=== PATIENT | female | born 1965 | race Native Hawaiian/Other Pacific Islander ===

== ENCOUNTER 2017-04-30 18:40 | Emergency (ER) | payer OTHER ==
[~2017-04-30] VITALS: Ht 172.7 cm; Wt 109.8 kg
== END 2017-04-30 22:00 | disposition home or self-care (01) ==
LOC: ED 18:40
DX: S70.02XA Contusion of left hip, initial encounter (principal); W01.0XXA Fall on same level from slipping, tripping and stumbling without subsequent striking against object, initial encounter; Y93.89 Activity, other specified; Y92.238 Other place in hospital as the place of occurrence of the external cause; Y99.8 Other external cause status
CPT/HCPCS: 99282

== ENCOUNTER 2018-05-15 10:30 | Outpatient (CLI) | payer OTHER | END 2018-05-15 22:01 | disposition home or self-care (01) | LOC: RAD 10:30 | DX: M25.511 Pain in right shoulder (principal); M25.562 Pain in left knee; M25.561 Pain in right knee ==

== ENCOUNTER 2019-01-16 13:54 | Outpatient (CLI) | payer OTHER ==
[2019-01-16 14:17] LABS: POTASSIUM 3.9 mmol/L (3.6-5.2)
[2019-01-16 15:02] LABS: PLATELET COUNT 282 K/uL (152-353)
== END 2019-01-16 21:09 | disposition home or self-care (01) ==
LOC: LABW 13:54
PROVIDERS: Nurse Practitioner Family
DX: K64.0 First degree hemorrhoids (principal); R10.9 Unspecified abdominal pain
CPT/HCPCS: 36415; 80053; 81000; 82150; 82272; 82784; 83516; 83690; 85027; 86677

== ENCOUNTER 2019-01-18 07:52 | Outpatient (CLI) | payer OTHER | END 2019-01-18 19:10 | disposition home or self-care (01) | LOC: CT 07:52 | DX: R10.9 Unspecified abdominal pain (principal) | CPT/HCPCS: Q9963 ==

== ENCOUNTER 2019-05-02 10:50 | Day surgery (SDC) | payer OTHER ==
[~2019-05-02] VITALS: Ht 30.5 cm; Wt 0.5 kg
[2019-05-02 11:25] LABS: PLATELET COUNT 301 K/uL (152-353)
[2019-05-02 11:35] LABS: POTASSIUM 3.7 mmol/L (3.6-5.2)
== END 2019-05-02 16:08 | disposition home or self-care (01) ==
LOC: OR 10:50
PROVIDERS: Student in an Organized Health Care Education/Training Program
PROC: 0DJD8ZZ Inspection of Lower Intestinal Tract, Via Natural or Artificial Opening Endoscopic (ICD-10-PCS; principal; 2019-05-02)
PROC: 0DB68ZZ Excision of Stomach, Via Natural or Artificial Opening Endoscopic (ICD-10-PCS; 2019-05-02)
DX: K29.50 Unspecified chronic gastritis without bleeding (principal); K64.8 Other hemorrhoids; Z86.010 Personal history of colon polyps; K59.00 Constipation, unspecified; R10.84 Generalized abdominal pain; K92.0 Hematemesis
CPT/HCPCS: 80053; 85027; J0132; J2001; J2250; J2704; J3490

== ENCOUNTER 2019-07-23 11:38 | Outpatient (CLI) | payer OTHER | END 2019-07-23 22:03 | disposition home or self-care (01) | LOC: RAD 11:38 | DX: K59.00 Constipation, unspecified (principal) ==

== ENCOUNTER 2019-09-04 12:35 | Outpatient (CLI) | payer OTHER | END 2019-09-04 22:30 | disposition home or self-care (01) | LOC: RAD 12:35 | DX: K59.09 Other constipation (principal) ==

== ENCOUNTER 2019-09-17 08:13 | Outpatient (CLI) | payer OTHER | END 2019-09-17 20:55 | disposition home or self-care (01) | LOC: NM 08:13 | DX: K31.84 Gastroparesis (principal) | CPT/HCPCS: A9541 ==

== ENCOUNTER 2019-09-17 10:01 | Emergency (ER) | payer OTHER ==
[~2019-09-17] VITALS: Ht 172.7 cm; Wt 123.4 kg
[2019-09-17 10:10] VITALS: BP 156/86; TEMP 97.7
== END 2019-09-17 10:44 | disposition home or self-care (01) ==
LOC: ED 10:01
DX: B07.0 Plantar wart (principal)
CPT/HCPCS: 99281

== ENCOUNTER 2019-09-26 16:08 | Outpatient (CLI) | payer OTHER | END 2019-09-26 21:45 | disposition home or self-care (01) | LOC: LABW 16:08 | DX: R10.9 Unspecified abdominal pain (principal); K59.00 Constipation, unspecified | CPT/HCPCS: 36415; 83516; 86255; 86671 ==

== ENCOUNTER 2021-02-24 07:47 | Outpatient (CLI) | payer OTHER | END 2021-02-24 21:56 | disposition home or self-care (01) | LOC: CT 07:47 | PROVIDERS: ATTEND Nurse Practitioner | DX: M79.604 Pain in right leg (principal); M79.605 Pain in left leg; R60.0 Localized edema | CPT/HCPCS: 36415; 82565; 84520 ==

== ENCOUNTER 2021-06-18 14:18 | Emergency (ER) | payer OTHER ==
[~2021-06-18] VITALS: Ht 172.7 cm; Wt 123.4 kg
[2021-06-18 14:39] VITALS: TEMP 102.2
[2021-06-18 15:52] LABS: PLATELET COUNT 215 K/uL (152-353)
[2021-06-18 16:05] LABS: PARTIAL THROMBOPLASTIN TIME 24.8 SECONDS (24.5-33.6); POTASSIUM 3.2 mmol/L (3.6-5.2); SODIUM 137 mmol/L (136-145)
[2021-06-18 20:50] VITALS: BP 157/66
== END 2021-06-18 20:50 | disposition home or self-care (01) ==
LOC: ED 14:18
PROVIDERS: Emergency Medicine
DX: U07.1 COVID-19 (principal); J12.82 Pneumonia due to coronavirus disease 2019; R79.89 Other specified abnormal findings of blood chemistry; S00.83XA Contusion of other part of head, initial encounter; W22.8XXA Striking against or struck by other objects, initial encounter; Y92.89 Other specified places as the place of occurrence of the external cause
CPT/HCPCS: 36415; 80053; 83605; 83880; 84484; 85027; 85379; 85610; 85730; 87040; 93005; 96372; 99284; J1100; Q9963

== ENCOUNTER 2021-06-19 10:48 | Outpatient (CLI) | payer OTHER ==
[~2021-06-19] VITALS: Ht 172.7 cm; Wt 140.2 kg
== END 2021-06-19 19:32 | disposition home or self-care (01) ==
LOC: INF 10:48
PROVIDERS: ATTEND Internal Medicine
DX: Z23 Encounter for immunization (principal); U07.1 COVID-19
CPT/HCPCS: 96365; M0244

== ENCOUNTER 2021-08-12 13:10 | Outpatient (CLI) | payer OTHER | END 2021-08-12 19:19 | disposition home or self-care (01) | LOC: RAD 13:10 | PROVIDERS: ATTEND Registered Nurse | DX: R05.9 Cough, unspecified (principal) ==

== ENCOUNTER 2022-03-17 10:55 | Outpatient (CLI) | payer OTHER | END 2022-03-17 19:13 | disposition home or self-care (01) | LOC: MAMMO 10:55 | PROVIDERS: ATTEND Nurse Practitioner | DX: Z12.31 Encounter for screening mammogram for malignant neoplasm of breast (principal) ==

== ENCOUNTER 2022-10-27 15:08 | Emergency (ER) | payer OTHER ==
[~2022-10-27] VITALS: Ht 172.7 cm; Wt 128.8 kg
[2022-10-27 15:15] VITALS: BP 154/84; TEMP 98.1
== END 2022-10-27 16:54 | disposition home or self-care (01) ==
LOC: ED 15:08
DX: M23.8X2 Other internal derangements of left knee (principal); S60.222A Contusion of left hand, initial encounter; W10.8XXA Fall (on) (from) other stairs and steps, initial encounter; Y92.89 Other specified places as the place of occurrence of the external cause
CPT/HCPCS: 99283

== ENCOUNTER 2023-04-21 08:40 | Outpatient (CLI) | payer OTHER | END 2023-04-21 22:13 | disposition home or self-care (01) | LOC: MAMMO 08:40 | PROVIDERS: ATTEND Nurse Practitioner | DX: Z12.31 Encounter for screening mammogram for malignant neoplasm of breast (principal) ==